=== PATIENT | female | born 1960 ===

== ENCOUNTER 2019-12-25 16:30 | Emergency (ER) | payer SELFPAY ==
[2019-12-25 17:01] LABS: ABSOLUTE EOSINOPHILS # (AUTO) 0.1 10^3/uL (0.0-0.6); ABSOLUTE LYMPHOCYTES (AUTO) 1.6 10^3/uL (0.5-4.7); ABSOLUTE MONOCYTES (AUTO) 0.4 10^3/uL (0.1-1.4); ABSOLUTE NEUT (AUTO) 2.6 10^3/uL (1.7-8.2); BASOPHILS % (AUTO) 0.8 % (0-2); EOSINOPHILS % (AUTO) 2.6 % (0-6); HEMATOCRIT 36.4 % (36.0-47.0); HEMOGLOBIN 12.1 g/dL (12.0-15.5); LYMPHOCYTES % (AUTO) 34.3 % (13-45); MEAN CORPUSCULAR HEMOGLOBIN 27.2 pg (27.0-33.4); MEAN CORPUSCULAR HGB CONC 33.2 g/dL (32.0-36.0); MEAN CORPUSCULAR VOLUME 82 fl (80-97); MONOCYTES % (AUTO) 7.9 % (3-13); PLATELET COUNT 206 10^3/uL (150-450); RED BLOOD COUNT 4.44 10^6/uL (3.72-5.28); RED CELL DISTRIBUTION WIDTH 15.1 % (11.5-14.0); SEGMENTED NEUTROPHILS % (AUTO) 54.4 % (42-78); TOTAL CELLS COUNTED % (AUTO) 100 %; WHITE BLOOD COUNT 4.7 10^3/uL (4.0-10.5)
[2019-12-25 17:21] LABS: ALBUMIN 4.2 g/dL (3.5-5.0); ALKALINE PHOSPHATASE 90 U/L (38-126); ANION GAP 10 (5-19); ASPARTATE AMINO TRANSFERASE 34 U/L (14-36); BILIRUBIN,DIRECT 0.1 mg/dL (0.0-0.4); BILIRUBIN,TOTAL 0.5 mg/dL (0.2-1.3); BLOOD UREA NITROGEN 15 mg/dL (7-20); CALCIUM 9.2 mg/dL (8.4-10.2); CARBON DIOXIDE 22 mmol/L (22-30); CHLORIDE 107 mmol/L (98-107); CREATINE KINASE 420 U/L (30-135); GLUCOSE 103 mg/dL (75-110); POTASSIUM 4.3 mmol/L (3.6-5.0)
[2019-12-25 17:35] LABS: TROPONIN I < 0.012 ng/mL
--- NOTE | 2019-12-25 17:44 | ER Document Report ---
ED Medical Screen (RME) - General Chief Complaint: Chest Pain Stated Complaint: CHEST PAIN Time Seen by Provider: 12/25/19 17:39 Mode of Arrival: Medic Information source: Patient Notes: 59-year-old female presented to ED for complaint of chest pain. She states she had the same chest pain 3 or 4 nights ago at work. She states the pain is like her lot of pressure in the left side of her chest.. She states when she had the chest pain 3 or 4 nights ago it was very brief but today it was much longer. She states she is not having any chest pain at this time. We will get repeat on the troponin and she will be seen by another provider. I have greeted and performed a rapid initial assessment of this patient. A comprehensive ED assessment and evaluation of the patient, analysis of test results and completion of medical decision making process will be conducted by an additional ED providers. - Related Data Allergies/Adverse Reactions: No Known Allergies Allergy (Verified 12/25/19 17:39) Physical Exam - Vital signs Vitals: Temp Pulse Resp BP Pulse Ox 98.0 F 65 16 149/66 H 99 12/25/19 17:24 12/25/19 17:24 12/25/19 17:24 12/25/19 17:24 12/25/19 17:24 Course - Vital Signs Vital signs: Temp Pulse Resp BP Pulse Ox 98.0 F 65 16 149/66 H 99 12/25/19 17:24 12/25/19 17:24 12/25/19 17:24 12/25/19 17:24 12/25/19 17:24 - Laboratory Result Diagrams: 12/25/19 16:43 12/25/19 16:43 Laboratory results interpreted by me: 12/25/19 12/25/19 12/25/19 16:43 16:43 16:43 RDW 15.1 H Creatine Kinase 420 H CK-MB (CK-2) 5.80 H
--- NOTE | 2019-12-25 18:06 | RADIOLOGY REPORT (SQ) ---
EXAM DESCRIPTION: CHEST SINGLE VIEW IMAGES COMPLETED DATE/TIME: 12/25/2019 5:07 pm REASON FOR STUDY: chest pain COMPARISON: None. EXAM PARAMETERS: NUMBER OF VIEWS: One view. TECHNIQUE: Single frontal radiographic view of the chest acquired. RADIATION DOSE: NA LIMITATIONS: None. FINDINGS: LUNGS AND PLEURA: No opacities, masses or pneumothorax. No pleural effusion. MEDIASTINUM AND HILAR STRUCTURES: No masses. Contour normal. HEART AND VASCULAR STRUCTURES: Heart normal in size. Normal vasculature. BONES: No acute findings. HARDWARE: None in the chest. OTHER: No other significant finding. IMPRESSION: NO ACUTE RADIOGRAPHIC FINDING IN THE CHEST. TECHNICAL DOCUMENTATION: JOB ID: [id number] 2010 [employer]- All Rights Reserved Reading location - IP/workstation name: [email or web address]
--- NOTE | 2019-12-25 19:29 | EKG REPORT ---
SEVERITY:- NORMAL ECG - SINUS RHYTHM : Confirmed by: Khadra Mar MD 25-Dec-2019 19:28:23
--- NOTE | 2019-12-26 01:22 | ER Document Report ---
ED Cardiac - General Chief Complaint: Chest Pain Stated Complaint: CHEST PAIN Time Seen by Provider: 12/25/19 17:39 Primary Care Provider: DHIRAJ WOOTEN MD [ACTIVE PROVISIONAL STAFF] - Follow up tomorrow Mode of Arrival: Medic Notes: Patient is a 59-year-old female that comes emergency department for chief complaint of chest pain. 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 She states it then resolved. She denies nausea, vomiting, shortness of breath, dizziness, cough, fever, injury. She states she has not had any symptoms again since. She has a history of gastric bypass and tubal ligation ectopic , takes daily multivitamins, denies smoking, alcohol, recreational drugs, denies medical history otherwise. She is has a positive family history of [facility]. - Related Data Allergies/Adverse Reactions: No Known Allergies Allergy (Verified 12/25/19 17:39) Past Medical History - General Information source: Patient - Social History Smoking Status: Current Every Day Smoker Smoking Education Provided: Yes - <3 min Drug Abuse: None Lives with: Family Family History: CAD Past Surgical History: Reports: Hx Section, Hx Gastric Bypass Surgery Review of Systems - Review of Systems Constitutional: No symptoms reported EENT: No symptoms reported Cardiovascular: See HPI Respiratory: No symptoms reported Gastrointestinal: No symptoms reported Genitourinary: No symptoms reported Female Genitourinary: No symptoms reported Musculoskeletal: No symptoms reported Skin: No symptoms reported Hematologic/Lymphatic: No symptoms reported Neurological/Psychological: No symptoms reported Physical Exam - Vital signs Vitals: Temp Pulse Resp BP Pulse Ox 98.0 F 65 16 149/66 H 99 12/25/19 17:24 12/25/19 17:24 12/25/19 17:24 12/25/19 17:24 12/25/19 17:24 - Notes Notes: GENERAL: Alert, interacts well. No acute distress. HEAD: Normocephalic, atraumatic. EYES: Pupils equal, round, and reactive to light. Extraocular movements intact. ENT: Oral mucosa moist, tongue midline. Oropharynx unremarkable. Airway patent. NECK: Full range of motion. Supple. Trachea midline. No lymphadenopathy. LUNGS: Clear to auscultation bilaterally, no wheezes, rales, or rhonchi. No respiratory distress. Non-tender chest wall. HEART: Regular rate and rhythm. No murmur ABDOMEN: Soft, non-tender. Non-distended. EXTREMITIES: Moves all 4 extremities spontaneously. No edema, normal radial and dorsalis pedis pulses bilaterally. No cyanosis. BACK: no cervical, thoracic, lumbar midline tenderness. No saddle anesthesia, normal distal neurovascular exam. Moves all extremities in full range of motion. NEUROLOGICAL: Alert and oriented x3. Normal speech. Cranial nerves II through XII grossly intact. Strength 5/5 in all extremities. PSYCH: Normal affect, normal mood. SKIN: Warm, dry, normal turgor. No rashes or lesions noted. Course - Re-evaluation Re-evalutation: Patient is asymptomatic and well-appearing on my exam. She was hypertensive here, this is 141/85 on my evaluation. Patient is obese, however she has no cardiac risk factors otherwise other than positive family history. Heart score less than or equal to 3. EKG nonischemic. Chest x-ray unremarkable. CBC, chemistry unremarkable. CK-MB is slightly elevated but this is nonspecific given CK is in the 400s. Troponin negative, cycled and negative. Patient had an episode where she went bradycardic into the 40s on the monitor although when I rechecked her she had no symptoms. Because of her bradycardia, symptoms, risk factors, chest pain, I did discuss potentially admitting the patient to the hospital for telemetry observation and cardiology evaluation. However patient was strongly against this. She does agree to follow-up with cardiology closely but she does not want to be admitted at this time. Patient does understand return precautions and states she will return if she worsens in any way. Patient asymptomatic, stable, well-appearing at time of discharge. - Vital Signs Vital signs: Temp Pulse Resp BP Pulse Ox 97.8 F 55 L 16 150/85 H 98 12/26/19 02:19 12/26/19 02:19 12/26/19 02:19 12/26/19 02:19 12/26/19 02:19 - Laboratory Result Diagrams: 12/25/19 16:43 12/25/19 16:43 Laboratory results interpreted by me: 12/25/19 12/25/19 12/25/19 16:43 16:43 16:43 RDW 15.1 H Creatine Kinase 420 H CK-MB (CK-2) 5.80 H - EKG Interpretation by Me Additional EKG results interpreted by me: EKG shows sinus bradycardia at a rate of 55, QTC 421, normal axis, no T wave inversions or ST segment changes in consecutive leads, isolated borderline T wave inversion in lead III. Machine reads as normal. Discharge - Discharge Clinical Impression: Chest pain Qualifiers: Chest pain type: unspecified Qualified Code(s): R07.9 - Chest pain, unspecified Condition: Stable Disposition: HOME, SELF-CARE Additional Instructions: Your work-up is negative, no concerning findings are seen on your evaluation tonight. Because of your symptoms and risk factors however, please call the listed referral and see the insurance policy issue clerk in close follow-up for additional evaluation and management. Return if you worsen including return for severe pain, passing out, difficulty breathing, or any other concerning symptoms. Forms: Return to Work Referrals: DHIRAJ WOOTEN MD [ACTIVE PROVISIONAL STAFF] - Follow up tomorrow
[2019-12-26 02:20] VITALS: BP 150/85
== END 2019-12-26 02:20 | disposition home or self-care (01) ==
LOC: ER 16:30
DX: R07.89 Other chest pain (principal); R00.1 Bradycardia, unspecified; F17.200 Nicotine dependence, unspecified, uncomplicated; E66.9 Obesity, unspecified; I10 Essential (primary) hypertension; Z79.899 Other long term (current) drug therapy; Z98.84 Bariatric surgery status; Z82.49 Family history of ischemic heart disease and other diseases of the circulatory system
CPT/HCPCS: 36415; 71045; 80053; 82550; 82553; 84484; 85025; 93005; 93010; 99285